=== PATIENT | male | born 1955 | race Caucasian/White ===

== ENCOUNTER 2017-10-08 19:08 | Emergency (ER) | payer BC, SELFPAY ==
--- NOTE | 2017-10-08 19:08 | DT_ITS ---
This patient was seen during an EMR downtime October 08, 2017 - October 15, 2017. This patient may have a combination of paper and electronic documentation or all paper documentation. All documentation is viewable within the e-chart portion of [employer] for each patient visit.
--- NOTE | 2017-10-08 22:00 | US_ITS ---
STUDY: VENOUS DOPPLER ULTRASOUND - RIGHT LOWER EXTREMITY REASON FOR EXAM: Male, 62 years old. Right leg pain and swelling. TECHNIQUE: Ultrasound evaluation of the deep vein system to include mendez-scale imaging and compression was performed. Mendez-scale imaging and Doppler sonographic evaluation, including duplex spectral analysis and qualitative color flow sonography, was performed. COMPARISON: None. FINDINGS: Common Femoral Vein: Normal compression, spontaneity and augmentation. Normal color Doppler. Greater Saphenous Vein: Normal compression. . Deep Femoral Vein: Normal compression, spontaneity and augmentation. Normal color Doppler. Femoral Proximal: Normal compression. Femoral Middle: Normal compression, spontaneity and augmentation. Normal color Doppler. Femoral Distal: Normal compression. Popliteal Vein: Normal compression, spontaneity and augmentation. Normal color Doppler. Posterior Tibial Vein: Normal compression. Peroneal Vein: Normal compression. There is no demonstrated deep venous thrombosis. Incidental note of echogenicity consistent with thrombus within an ectatic, serpiginous superficial vein of the medial mid right thigh, correlating with the patient's site of discomfort. US/Venous Duplex Imag/Limited/Uni IMPRESSION: 1. No demonstrate DVT of the right lower extremity. 2. There are additional findings of acute superficial thrombophlebitis in the medial mid right thigh. Electronically Signed: Ramiro Antonio MD at 16:23 EDT , Service support ,
== END 2017-10-08 22:57 | disposition home or self-care (01) ==
PROVIDERS: Emergency Provider Emergency Medicine; Family Provider Family Medicine; PCP Family Medicine
DX: I80.01 Phlebitis and thrombophlebitis of superficial vessels of right lower extremity (principal); F17.210 Nicotine dependence, cigarettes, uncomplicated
CPT/HCPCS: 93971; 99282